=== PATIENT | female | born 1950 | race Caucasian/White ===

== ENCOUNTER 2019-08-07 12:57 | Emergency (ER) | payer SELFPAY ==
[2019-08-07] MEDS ORDERED: SODIUM CHLORIDE 1,000 ML IV SCH (13:15)
[2019-08-07] MEDS ORDERED: niCARdipine HCL 25 MG/10 ML AMPUL IVPB ONE (13:19)
[2019-08-07] MEDS ORDERED: levETIRAcetam 500 MG/5 ML INJECTION VIAL IVPB ONE ×3 (13:30→13:42)
[2019-08-07] MEDS ORDERED: NICARDIPINE 25 MG in DEXTROSE 5%-WATER - 240 ML IVPB SCH (13:30)
--- NOTE | 2019-08-07 13:30 | PDOC ---
Documentation entered by Aubrey Gutierrez SCRIBE, acting as scribe for Dena Arriola MD. Dena Arriola MD: This documentation has been prepared by the Matt andres Daniel, SCRIBE, under my direction and personally reviewed by me in its entirety. I confirm that the documentation accurately reflects all work, treatment, procedures, and medical decision making performed by me. Attending Attestation - Resident Resident Name: Kyler Mccauley - ED Attending Attestation I have performed the following: I have examined & evaluated the patient, The case was reviewed & discussed with the resident, I agree w/resident's findings & plan, Exceptions are as noted - HPI HPI: 08/07/19 13:22 69 yo F no pmhx here with sudden onset headache at 10 am. awoke with no sxs. later in morning pt was at [facility], sudenly became lightheaded and and fainted. no precipitating chest pain or palpitations. since her syncope they noted her mouth / face was asymmetric, tingling in arm. mild nausea, no vomiting. no sieure like activity. no current blood thinners or medication. - Physicial Exam PE: 08/07/19 13:25 awake alert nad lungs clear bilat heart rrr no mrg abd soft nt nd ext wwp. no edema. no calf tenderness. nuero pt alert oriented x 3. moves all four ext. mild drift left arm right arm no drift. right leg drift hits bed. left leg drift does not hit bed. mild right facial drrop. speech clear. - Medical Decision Making 08/07/19 13:27 69 yo F with sudden onset headache syncope now with nuerological findings facial asymmetry. differential stroke bleed, dysrhytmia, plan labs ekg cy head. code stroke called ct head noted for subarachnoid bleed. given cardene drip. and keppra loaded. 08/07/19 13:53 pt bp improved to 125/74 Heart Score/ECG Review #1 General ECG Interpretation: Sinus Rhythm, Normal Rate (87), Normal Intervals, No acute ischemic changes NIH Stroke Scale - Initial Evaluation Level of consciousness: Alert Ask patient the month and their age: Answers both correctly Ask patient to open & close eyes; make fist and let go: Obeys both correctly Best gaze (horizontal eye movement): Normal Visual field testing: No visual field loss Facial paresis (Show teeth/raise eyebrows/close eyes tight): Minor paralysis ( flattened nasolabial fold, asymmetry on smiling) (right lower facial droop) Motor Function: Left Arm: Drift Motor Function: Right Arm: Normal (extends arm 90 (or 45) degrees for 10 seconds without drift Motor Function: Left Leg: Normal (extends leg 30 degrees for 5 seconds without drift) Motor Function: Right Leg: Drift Limb Ataxia: No ataxia Sensory(Use pinprick test arms,legs,trunk,face/side to side): Normal Best language (Describe picture, name items, read sentences): No Aphasia Dysarthria (read several words): Normal articulation Extinction and Inattention: No abnormality - Total Score NIH Stroke Scale Score: 3
--- NOTE | 2019-08-07 13:37 | PDOC ---
History of Present Illness - General Chief Complaint: CVA/TIA Stated Complaint: SYNCOPE Time Seen by Provider: 08/07/19 13:06 - History of Present Illness Initial Comments: The pt is a 69F w/ no reported PMH who presents by EMS for concern of stroke- like symptoms. Pt reports sudden onset severe BRUNO that began at 0900 today. The BRUNO is b/l, constant, throbbing, and not exacerbated or alleviated by anything she can identify. She also had a syncopal episode at 1220. She reports global weakness. Denies recent illness, fevers/chills, chest pain, trouble breathing, abdominal pain, N/V/C/D, dysuria, hematuria, or blood in her stool. PMH: Denies PSH: Denies Meds: Denies SH: Denies x3 08/07/19 13:37 NIH Stroke Scale - Last Known Well Date/Time & Onset Date Last Known Well: 08/07/19 Time Last Known Well: 12:20 - Initial Evaluation Level of consciousness: Alert Ask patient the month and their age: Answers both correctly Ask patient to open & close eyes; make fist and let go: Obeys both correctly Best gaze (horizontal eye movement): Normal Visual field testing: No visual field loss Facial paresis (Show teeth/raise eyebrows/close eyes tight): Minor paralysis ( flattened nasolabial fold, asymmetry on smiling) (R lower) Motor Function: Left Arm: Drift Motor Function: Right Arm: Normal (extends arm 90 (or 45) degrees for 10 seconds without drift Motor Function: Left Leg: Normal (extends leg 30 degrees for 5 seconds without drift) Motor Function: Right Leg: Drift Limb Ataxia: No ataxia Sensory(Use pinprick test arms,legs,trunk,face/side to side): Normal Best language (Describe picture, name items, read sentences): No Aphasia Dysarthria (read several words): Normal articulation Extinction and Inattention: No abnormality - Total Score NIH Stroke Scale Score: 3 Past History - Past Medical History Allergies/Adverse Reactions: Allergies Allergy/AdvReac Type Severity Reaction Status Date / Time No Known Allergies Allergy Verified 08/07/19 13:03 COPD: No - Psycho Social/Smoking Cessation Hx Smoking History: Never smoked Have you smoked in the past 12 months: No Information on smoking cessation initiated: No Hx Alcohol Use: No Drug/Substance Use Hx: No Review of Systems - Review of Systems Able to Perform ROS?: Yes Comments:: GENERAL/CONSTITUTIONAL: No fever or chills HEAD, EYES, EARS, NOSE AND THROAT: No change in vision. No change in hearing. No sore throat CARDIOVASCULAR: No chest pain or shortness of breath RESPIRATORY: Denies cough, hemoptysis GASTROINTESTINAL: No nausea, vomiting, diarrhea or constipation GENITOURINARY: No dysuria, frequency, or change in urination MUSCULOSKELETAL: No joint or muscle swelling or pain. No neck or back pain SKIN: No rash NEUROLOGIC: +BRUNO, generalized weakness ENDOCRINE: No increased thirst. No abnormal weight change HEMATOLOGIC/LYMPHATIC: No anemia, easy bleeding, or history of blood clots ALLERGIC/IMMUNOLOGIC: No hives or skin allergy 08/07/19 13:43 Is the patient limited Macedonian proficient: No *Physical Exam - Vital Signs Last Vital Signs Temp Pulse Resp BP Pulse Ox 85 18 163/102 H 100 08/07/19 13:02 08/07/19 13:02 08/07/19 13:02 08/07/19 13:02 - Physical Exam GENERAL: Awake, alert, and oriented to person/place/time HEAD: No signs of trauma, normoc ephalic, atraumatic EYES: PERRLA, EOMI, sclera anicteric, conjunctiva clear ENT: Hearing grossly normal, nares patent, oropharynx clear without exudates. Moist mucosa LUNGS: No distress, speaks in full sentences, clear to auscultation bilaterally HEART: Regular rate and rhythm, normal S1 and S2, no murmurs appreciated, peripheral pulses normal and equal bilaterally ABDOMEN: Soft, nontender, normoactive bowel sounds. No guarding, no rebound EXTREMITIES: Normal inspection, Normal range of motion, no edema. No clubbing or cyanosis NEUROLOGICAL: Mild right lower facial droop, LUE relative to RUE weakness w/o drift; RLE drift; no LLE drift, sensation to light touch intact throughout SKIN: Warm, Dry 08/07/19 13:44 ED Treatment Course - LABORATORY CBC & Chemistry Diagram: 08/07/19 13:20 - ADDITIONAL ORDERS Additional order review: Laboratory Results 08/07/19 13:04 POC Glucometer 167 08/07/19 13:04 POC Glucometer 167 - RADIOLOGY Radiology Studies Ordered: Category Date Time Status HEAD CT WITHOUT CONTRAST [CT] Stat CT Scan 08/07/19 13:01 Ordered Radiograph Interpretation: CT/HEAD CT WITHOUT CONTRAST There is hyperdense material within the subarachnoid space throughout the brain consistent with acute hemorrhage. The blood is most pronounced at the base of the skull and a ruptured aneurysm is the most likely the etiology of the bleeding. Clinical correlation is advised. There is no evidence of intracranial mass lesions or acute infarction. IMPRESSION: Subarachnoid hemorrhage. 08/07/19 13:42 Medical Decision Making - Critical Care Time Total Critical Care Time (minutes): 45 Critical Care Statement: The care of this patient involved high complexity decision making to prevent further life threatening deterioration of the patient 's condition and/or to evaluate & treat vital organ system(s) failure or risk of failure. - Medical Decision Making The pt is a 69F w/ no reported PMH who presents for evaluation of severe BRUNO since 0900 and syncopal episode with subsequent weakness at 1220 ED Course Labs sent CT head with SAH Plan for Transfer to [facility] Pt accepted for transfer and consent obtained Will give Keppra 1.5g IV once Cardene gtt initiated at 2.5 mg/hr BGM 167 08/07/19 13:40 BP improved to 125/74 08/07/19 13:53 ECG w/ NSR; HR 87; QTc 488; no TWI, no RAMAN 08/07/19 14:11 Lytes wnl No CLOVER Alk phos minimally elevated to 121, other LFTs wnl Trop I wnl 08/07/19 14:13 Dispo: Pt transferred 08/07/19 14:27 Discharge - Discharge Information Problems reviewed: Yes Clinical Impression/Diagnosis: SAH (subarachnoid hemorrhage) Condition: Guarded Disposition: TRANSFER ACUTE CARE/OTHER HOSP - Admission No - Follow up/Referral Referrals: Amber Keller MD [Primary Care Provider] - - Patient Discharge Instructions - Post Discharge Activity - Transfer to Acute Care Facility Receiving Facility Name: [facility] Accepting Physician:: Dr. Cox
[2019-08-07 13:44] LABS: INR 0.89 (0.83-1.09); PROTHROMBIN TIME (PATIENT) 10.5 SEC (9.7-13.0)
[2019-08-07 13:52] LABS: CHOLESTEROL 221 mg/dL (50-200); HDL CHOLESTEROL 74 mg/dL (40-60); LDL CHOLESTEROL (ONLY SJRH) 127 mg/dL (5-100); TRIGLYCERIDES 89 mg/dL (0-150)
[2019-08-07 13:57] VITALS: TEMP 97.5
--- NOTE | 2019-08-07 13:58 | EKG ---
Test Reason : Blood Pressure : / mmHG Vent. Rate : 087 BPM Atrial Rate : 087 BPM P-R Int : 142 ms QRS Dur : 090 ms QT Int : 406 ms P-R-T Axes : 036 -18 047 degrees QTc Int : 488 ms POOR DATA QUALITY, INTERPRETATION MAY BE ADVERSELY AFFECTED NORMAL SINUS RHYTHM MINIMAL VOLTAGE CRITERIA FOR LVH, MAY BE NORMAL VARIANT BORDERLINE ECG NO PREVIOUS ECGS AVAILABLE Confirmed by ANISA HONG, FRANCINE ([id number]) on 08/07/2019 1:58:10 PM Referred By: Confirmed By:FRANCINE LANGE MD
[2019-08-07 14:04] LABS: ALBUMIN 3.8 g/dl (3.4-5.0); ALK PHOS 121 U/L (45-117); ANION GAP 9 MMOL/L (8-16); BILIRUBIN,TOTAL 0.4 mg/dL (0.2-1); BLOOD UREA NITROGEN 13.8 mg/dL (7-18); CALCIUM 9.3 mg/dL (8.5-10.1); CHLORIDE 106 mmol/L (98-107); CO2 25 mmol/L (21-32); CREATININE 0.5 mg/dL (0.55-1.3); GLUCOSE,RANDOM 163 mg/dL (74-106); POTASSIUM 3.6 mmol/L (3.5-5.1); SGOT/AST 28 U/L (15-37); SGPT/ALT 34 U/L (13-61); SODIUM 139 mmol/L (136-145); TOT PROT 7.5 g/dl (6.4-8.2)
[2019-08-07] MEDS ORDERED: ONDANSETRON 4 MG/2 ML VIAL IVPUSH ONE (14:08)
[2019-08-07] MEDS ORDERED: ONDANSETRON 4 MG/2 ML VIAL ONE (14:08)
[2019-08-07 14:42] VITALS: BP 140/100; PULSE 75
== END 2019-08-07 14:00 | disposition short-term general hospital (02) ==
LOC: JER 12:57
PROC: 3E033GC Introduction of Other Therapeutic Substance into Peripheral Vein, Percutaneous Approach (ICD-10-PCS; principal; 2019-08-07)
PROC: 3E033GC Introduction of Other Therapeutic Substance into Peripheral Vein, Percutaneous Approach (ICD-10-PCS; 2019-08-07)
PROC: 3E033GC Introduction of Other Therapeutic Substance into Peripheral Vein, Percutaneous Approach (ICD-10-PCS; 2019-08-07)
DX: I60.9 Nontraumatic subarachnoid hemorrhage, unspecified (principal); R29.703 NIHSS score 3
CPT/HCPCS: 36415; 70450-TC; 80053; 80061; 82550; 82962; 83721; 84484; 85610; 85730; 93005; 93010; 99285-25

== ENCOUNTER 2020-06-06 20:02 | Inpatient (IN) | payer OTHER ==
[2020-06-06 20:45] VITALS: BMI 31.4
[2020-06-06] MEDS ORDERED: SODIUM CHLORIDE 1,000 ML IV STA (21:32)
[2020-06-06] MEDS ORDERED: methylPREDNISolone NA SUCC 125 MG/2 ML VIAL IVPUSH ONE (21:32)
[2020-06-06] MEDS ORDERED: methylPREDNISolone NA SUCC 125 MG/2 ML VIAL ONE (22:14)
[2020-06-06 22:19] LABS: BASO % 0.5 % (0-2.0); EOS % 0.3 % (0-4.5); HEMATOCRIT 40.2 % (32.4-45.2); LYMPH % 14.9 % (8-40); MCH 28.2 pg (25.7-33.7); MCHC 32.5 g/dl (32.0-36.0); MEAN CELL VOLUME 86.8 fl (80-96); MEAN PLT VOLUME 8.3 fl (7.5-11.1); MONO % 4.8 % (3.8-10.2); NEUT % 79.5 % (42.8-82.8); PLATELET COUNT 248 K/MM3 (134-434); RBC 4.63 M/mm3 (3.60-5.2); RDW 14.8 % (11.6-15.6); WHITE BLOOD COUNT 5.5 K/mm3 (4.0-10.0)
[2020-06-06 22:49] LABS: CHLORIDE 110 mmol/L (98-107); POTASSIUM 3.3 mmol/L (3.5-5.1); SODIUM 141 mmol/L (136-145)
[2020-06-06 22:51] LABS: CALCIUM 8.8 mg/dL (8.5-10.1)
[2020-06-06 22:52] LABS: ALBUMIN 3.4 g/dl (3.4-5.0); ANION GAP 7 MMOL/L (8-16); BLOOD UREA NITROGEN 9.4 mg/dL (7-18); CO2 24 mmol/L (21-32); GLUCOSE,RANDOM 101 mg/dL (74-106); LIPASE 269 U/L (73-393)
[2020-06-06 22:55] LABS: CREATININE 0.7 mg/dL (0.55-1.3); SGOT/AST 16 U/L (15-37); SGPT/ALT 18 U/L (13-61)
[2020-06-06 22:56] LABS: BILIRUBIN,TOTAL 0.3 mg/dL (0.2-1); TOT PROT 7.1 g/dl (6.4-8.2)
[2020-06-06 22:57] LABS: ALK PHOS 118 U/L (45-117)
[2020-06-07 00:58] LABS: EPI CELLS >36 /uL (0-25.1); HYALINE CASTS 7 /uL (0-3.1); URINE APPEARANCE CLEAR; URINE BACTERIA 39 /uL (0-1359); URINE BILIRUBIN NEGATIVE (NEGATIVE); URINE COLOR YELLOW; URINE GLUCOSE (UA) NEGATIVE (NEGATIVE); URINE KETONE NEGATIVE (NEGATIVE); URINE LEUK ESTERASE 2+ (NEGATIVE); URINE NITRITE NEGATIVE (NEGATIVE); URINE PROTEIN TRACE (NEGATIVE); URINE RBC 46 /uL (0-23.9); URINE WBC 68 /uL (0-25.8)
[2020-06-07] MEDS ORDERED: CIPROFLOXACIN 500 MG TABLET (RESTRICTED TO ID) PO ONE (01:10)
[2020-06-07] MEDS ORDERED: KCL 10 MEQ IVPB 30 MEQ/300 ML INFUS.BAG IVPB ONE (02:21)
[2020-06-07] MEDS: KCL 10 MEQ IVPB 10 MEQ/100 ML INFUS.BAG IVPB SCH ×3 (02:28→04:19)
[2020-06-07] MEDS ORDERED: CEFTRIAXONE 1 GM in DEXTROSE 5%-WATER - 50 ML IVPB SCH (04:05)
[2020-06-07] MEDS ORDERED: FAMOTIDINE 20 MG/50 ML IVPB 20 MG/50 ML MG IVPB ONE (05:37)
[2020-06-07] MEDS ORDERED: CEFTRIAXONE 1 GM/50 ML BAG ONE (06:01)
[2020-06-07] MEDS: SODIUM CHLORIDE 1,000 ML IV SCH (07:31)
[2020-06-07 07:59] LABS: POTASSIUM 4.1 mmol/L (3.5-5.1)
[2020-06-07 08:01] LABS: HEMOGLOBIN 12.3 GM/dL (10.7-15.3); LYMPH % 6.9 % (8-40); MCH 28.2 pg (25.7-33.7); MCHC 32.3 g/dl (32.0-36.0); MEAN CELL VOLUME 87.4 fl (80-96); MEAN PLT VOLUME 8.5 fl (7.5-11.1); MONO % 1.3 % (3.8-10.2); NEUT % 91.8 % (42.8-82.8); PLATELET COUNT 247 K/MM3 (134-434); RBC 4.35 M/mm3 (3.60-5.2); RDW 14.8 % (11.6-15.6); WHITE BLOOD COUNT 5.4 K/mm3 (4.0-10.0)
[2020-06-07 08:03] LABS: CALCIUM 8.4 mg/dL (8.5-10.1)
[2020-06-07 08:04] LABS: MAGNESIUM 2.4 mg/dL (1.8-2.4)
[2020-06-07 08:07] LABS: CREATININE 0.6 mg/dL (0.55-1.3); PHOSPHOROUS 3.1 mg/dL (2.5-4.9)
[2020-06-07 08:08] LABS: BILIRUBIN,TOTAL 0.3 mg/dL (0.2-1)
[2020-06-07 08:09] LABS: TOT PROT 6.4 g/dl (6.4-8.2)
[2020-06-07] MEDS ORDERED: methylPREDNISolone NA SUCC 40 MG/1 ML VIAL ONE (09:12)
[2020-06-07] MEDS ORDERED: ENOXAPARIN NA (PORCINE) 40 MG/0.4 ML DISP.SYRIN SQ ONE (09:12)
[2020-06-07] MEDS: ENOXAPARIN NA (PORCINE) 40 MG/0.4 ML DISP.SYRIN SQ SCH (09:20)
[2020-06-07 09:37] LABS: ANISOCYTOSIS 1+; MACROCYTOSIS 0; PLATELET ESTIMATE NORMAL
[2020-06-07] MEDS ORDERED: FAMOTIDINE 20 MG/50 ML IVPB 20 MG/50 ML MG IVPB SCH (10:00)
[2020-06-07] MEDS ORDERED: methylPREDNISolone NA SUCC 1000 MG/8 ML VIAL IVPB SCH (10:00)
[2020-06-07] MEDS ORDERED: diphenhydrAMINE HCL 25 MG CAPSULE (FP) PO PRN (11:21)
[2020-06-07] MEDS: FAMOTIDINE 20 MG TABLET PO SCH (23:05)
[2020-06-08 06:40] VITALS: BP 125/71; PULSE 89; TEMP 97.9
[2020-06-08 07:08] LABS: BASO % 0.1 % (0-2.0); EOS % 0.1 % (0-4.5); HEMATOCRIT 34.6 % (32.4-45.2); HEMOGLOBIN 11.2 GM/dL (10.7-15.3); LYMPH % 17.9 % (8-40); MCHC 32.3 g/dl (32.0-36.0); MEAN CELL VOLUME 86.5 fl (80-96); MEAN PLT VOLUME 8.9 fl (7.5-11.1); MONO % 9.2 % (3.8-10.2); NEUT % 72.7 % (42.8-82.8); PLATELET COUNT 239 K/MM3 (134-434); WHITE BLOOD COUNT 6.2 K/mm3 (4.0-10.0)
[2020-06-08 07:27] LABS: POTASSIUM 3.8 mmol/L (3.5-5.1)
[2020-06-08 07:32] LABS: ALBUMIN 2.7 g/dl (3.4-5.0); CALCIUM 8.1 mg/dL (8.5-10.1); MAGNESIUM 2.2 mg/dL (1.8-2.4)
[2020-06-08 07:35] LABS: PHOSPHOROUS 2.8 mg/dL (2.5-4.9)
[2020-06-08 07:36] LABS: CREATININE 0.6 mg/dL (0.55-1.3)
[2020-06-08 07:37] LABS: BILIRUBIN,TOTAL 0.8 mg/dL (0.2-1); TOT PROT 5.6 g/dl (6.4-8.2)
[2020-06-08] MEDS ORDERED: predniSONE 20 MG TABLET (UD) PO SCH (10:00)
[2020-06-08] MEDS: FAMOTIDINE 20 MG TABLET PO SCH (10:25)
[2020-06-08] MEDS: SODIUM CHLORIDE 1,000 ML IV SCH (10:25)
[2020-06-08] MEDS: ENOXAPARIN NA (PORCINE) 40 MG/0.4 ML DISP.SYRIN SQ SCH (10:26)
== END 2020-06-08 13:27 | disposition home or self-care (01) | DRG 249 ==
LOC: JER 20:02 → JERBED 06-07 01:02 → J4W 06-07 18:10
PROVIDERS: ADMIT Internal Medicine; ATTEND Internal Medicine
DX: K52.9 Noninfective gastroenteritis and colitis, unspecified (principal); N39.0 Urinary tract infection, site not specified; T78.3XXA Angioneurotic edema, initial encounter; E87.6 Hypokalemia; R00.0 Tachycardia, unspecified; R10.9 Unspecified abdominal pain; E66.9 Obesity, unspecified; Z68.31 Body mass index [BMI] 31.0-31.9, adult; Z86.73 Personal history of transient ischemic attack (TIA), and cerebral infarction without residual deficits
CPT/HCPCS: 36415; 71045-TC-FY; 74177-TC; 80053; 81003; 82728; 83605; 83615; 83690; 83735; 83880; 84100; 84484; 85025; 86140; 87086; 87804; 93005; 93010; 99291; 99292; C9803; U0003